=== PATIENT | female | born 2000 | race Caucasian/White ===

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

== ENCOUNTER 2021-10-28 23:46 | Emergency (ER) | payer OTHER ==
[~2021-10-28] VITALS: Ht 149.8 cm; Wt 42.2 kg
[2021-10-29 00:08] LABS: BASO # 0.1 10*3/uL (0.0-0.1); BASO % 1.3 % (0.0-1.0); EOS # 0.1 10*3/uL (0.0-0.4); EOS % 0.7 % (1.0-4.0); HEMATOCRIT 35.1 % (37.0-47.0); LYMPH # 3.1 10*3/uL (1.3-4.4); LYMPH % 35.6 % (27.0-41.0); MEAN CELL VOLUME 83.4 fl (81.0-99.0); MEAN CORPUSCULAR HGB CONC 34.8 g/dl (33.0-37.0); MEAN PLATELET VOLUME 9.1 fl (9.6-12.3); MONO # 0.7 10*3/uL (0.1-1.0); MONO % 8.1 % (3.0-9.0); NEUT # 4.7 10*3/uL (2.3-7.9); PLATELET COUNT AUTOMATED 394 10*3/uL (130-400); RED BLOOD COUNT 4.21 10*6/uL (4.10-5.10); RED CELL DISTRI WIDTH 12.7 % (0-14.5); WHITE BLOOD COUNT 8.7 10*3/uL (4.8-10.8)
[2021-10-29 00:18] LABS: ACT PARTIAL THROMBO TIME 23.5 SECONDS (20.0-32.1); INTERNATIONAL NORM RATIO 1.1 (2.0-3.5)
[2021-10-29 00:23] LABS: ALKALINE PHOSPHATASE 74 U/L (45-117); BUN 10 mg/dl (7-24); CHLORIDE 108 mmol/L (98-107); POTASSIUM 3.8 mmol/L (3.5-5.1); SGOT/AST 11 IU/L (3-35); SGPT/ALT 20 U/L (12-78); SODIUM 140 mmol/L (136-145); TOTAL PROTEIN 7.6 gm/dL (6.4-8.2)
[2021-10-29] MEDS ORDERED: SERTRALINE HYDR25 MG PO (00:57)
[2021-10-29] MEDS ORDERED: NORGESTIMATE-E1 EACH PO (00:58)
[2021-10-29] MEDS ORDERED: LAMOTRIGINE25 M1 PO (00:58)
== END 2021-10-29 03:41 | disposition home or self-care (01) ==
LOC: ED 23:46
PROVIDERS: Emergency Medicine
DX: F41.0 Panic disorder [episodic paroxysmal anxiety] (principal); F17.200 Nicotine dependence, unspecified, uncomplicated; Z79.899 Other long term (current) drug therapy

== ENCOUNTER 2021-11-01 16:36 | Emergency (ER) | payer OTHER ==
[~2021-11-01] VITALS: Wt 42.2 kg
[~2021-11-01 16:36] MED LIST changes: +LAMOTRIGINE25 M1 PO; +NORGESTIMATE-E1 EACH PO; +SERTRALINE HYDR25 MG PO
[2021-11-01 18:02] LABS: BASO # 0.1 10*3/uL (0.0-0.1); BASO % 1.6 % (0.0-1.0); EOS # 0.1 10*3/uL (0.0-0.4); EOS % 1.3 % (1.0-4.0); HEMATOCRIT 36.1 % (37.0-47.0); LYMPH # 3.3 10*3/uL (1.3-4.4); LYMPH % 51.6 % (27.0-41.0); MEAN CELL VOLUME 86.6 fl (81.0-99.0); MEAN CORPUSCULAR HGB 29.3 pg (27.0-31.0); MEAN CORPUSCULAR HGB CONC 33.8 g/dl (33.0-37.0); MEAN PLATELET VOLUME 9.2 fl (9.6-12.3); MONO # 0.5 10*3/uL (0.1-1.0); MONO % 7.2 % (3.0-9.0); NEUT # 2.4 10*3/uL (2.3-7.9); NEUT % 38.1 % (47.0-73.0); PLATELET COUNT AUTOMATED 359 10*3/uL (130-400); RED BLOOD COUNT 4.17 10*6/uL (4.10-5.10); RED CELL DISTRI WIDTH 12.8 % (0-14.5); WHITE BLOOD COUNT 6.4 10*3/uL (4.8-10.8)
[2021-11-01 18:17] LABS: ALKALINE PHOSPHATASE 78 U/L (45-117); BUN 10 mg/dl (7-24); CHLORIDE 107 mmol/L (98-107); CREATININE 0.68 mg/dL (0.55-1.02); POTASSIUM 4.5 mmol/L (3.5-5.1); SGOT/AST 14 IU/L (3-35); SGPT/ALT 19 U/L (12-78); SODIUM 140 mmol/L (136-145)
[2021-11-01 18:20] LABS: B-hCG (QUALITATIVE) NEGATIVE (NEGATIVE)
== END 2021-11-01 19:50 | disposition home or self-care (01) ==
LOC: ED 16:36
PROVIDERS: Physician Assistant
DX: R07.89 Other chest pain (principal); Z79.899 Other long term (current) drug therapy

== ENCOUNTER 2022-04-04 14:16 | Emergency (ER) | payer OTHER ==
[~2022-04-04] VITALS: Ht 149.8 cm; Wt 46.3 kg
[2022-04-04 15:01] LABS: BASO # 0.1 10*3/uL (0.0-0.1); BASO % 1.4 % (0.0-1.0); EOS % 0.4 % (1.0-4.0); HEMATOCRIT 37.2 % (37.0-47.0); LYMPH # 2.3 10*3/uL (1.3-4.4); LYMPH % 41.6 % (27.0-41.0); MEAN CELL VOLUME 85.9 fl (81.0-99.0); MEAN CORPUSCULAR HGB 29.6 pg (27.0-31.0); MEAN CORPUSCULAR HGB CONC 34.4 g/dl (33.0-37.0); MEAN PLATELET VOLUME 9.1 fl (9.6-12.3); MONO # 0.3 10*3/uL (0.1-1.0); MONO % 4.8 % (3.0-9.0); NEUT # 2.9 10*3/uL (2.3-7.9); NEUT % 51.4 % (47.0-73.0); PLATELET COUNT AUTOMATED 346 10*3/uL (130-400); RED BLOOD COUNT 4.33 10*6/uL (4.10-5.10); RED CELL DISTRI WIDTH 12.6 % (0-14.5); WHITE BLOOD COUNT 5.6 10*3/uL (4.8-10.8)
[2022-04-04 15:20] LABS: ALKALINE PHOSPHATASE 67 U/L (46-116); BUN 11 mg/dl (9-23); CHLORIDE 103 mmol/L (98-107); POTASSIUM 3.7 mmol/L (3.4-5.1); SGPT/ALT 17 U/L (10-49); TOTAL PROTEIN 7.5 gm/dL (6.0-8.0)
== END 2022-04-04 17:20 | disposition home or self-care (01) ==
LOC: ED 14:16
PROVIDERS: Physician Assistant
DX: R11.2 Nausea with vomiting, unspecified (principal); Z88.8 Allergy status to other drugs, medicaments and biological substances

== ENCOUNTER 2022-04-24 07:24 | Emergency (ER) | payer OTHER ==
[~2022-04-24] VITALS: Wt 43.5 kg
[2022-04-24] MEDS ORDERED: ONDANSETRON4 MG SL (09:20)
== END 2022-04-24 09:35 | disposition home or self-care (01) ==
LOC: ED 07:24
DX: R11.2 Nausea with vomiting, unspecified (principal); Z91.013 Allergy to seafood; Z87.891 Personal history of nicotine dependence

== ENCOUNTER 2022-06-02 22:23 | Emergency (ER) | payer OTHER ==
[~2022-06-02] VITALS: Wt 42.2 kg
[~2022-06-02 22:23] MED LIST changes: +ONDANSETRON4 MG SL
[2022-06-02 23:25] LABS: BASO # 0.1 10*3/uL (0.0-0.1); BASO % 1.6 % (0.0-1.0); EOS # 0.1 10*3/uL (0.0-0.4); EOS % 1.2 % (1.0-4.0); HEMATOCRIT 35.8 % (37.0-47.0); LYMPH # 3.2 10*3/uL (1.3-4.4); LYMPH % 38.1 % (27.0-41.0); MEAN CORPUSCULAR HGB 28.7 pg (27.0-31.0); MEAN CORPUSCULAR HGB CONC 32.7 g/dl (33.0-37.0); MEAN PLATELET VOLUME 9.4 fl (9.6-12.3); MONO # 0.6 10*3/uL (0.1-1.0); MONO % 7.2 % (3.0-9.0); NEUT # 4.3 10*3/uL (2.3-7.9); NEUT % 51.7 % (47.0-73.0); PLATELET COUNT AUTOMATED 353 10*3/uL (130-400); RED BLOOD COUNT 4.07 10*6/uL (4.10-5.10); RED CELL DISTRI WIDTH 12.9 % (0-14.5); WHITE BLOOD COUNT 8.4 10*3/uL (4.8-10.8)
[2022-06-02 23:44] LABS: BILIRUBIN Negative (Negative); BLOOD Negative (Negative); CLARITY Cloudy (Clear); COLOR Yellow (Yellow); GLUCOSE Negative (Negative); KETONE Negative (Negative); LEUKO ESTERASE Negative (Negative); NITRITE Negative (Negative); UROBILINOGEN 0.2 E.U./dl (0.0-1.0)
[2022-06-02 23:44] LABS: ALKALINE PHOSPHATASE 64 U/L (46-116); BUN 9 mg/dl (9-23); CHLORIDE 106 mmol/L (98-107); LIPASE 34 U/L (12-53); SGPT/ALT 12 U/L (10-49); TOTAL PROTEIN 7.4 gm/dL (6.0-8.0)
[2022-06-03 00:19] LABS: BACTERIA 1+; RBC 0-2 rbc/hpf (0-2); WBC 0-2 wbc/hpf (0-5)
[2022-06-03] MEDS ORDERED: Ondansetron4 MG PO (01:14)
== END 2022-06-03 01:16 | disposition home or self-care (01) ==
LOC: ED 22:23
PROVIDERS: Physician Assistant
DX: B34.9 Viral infection, unspecified (principal); Z79.899 Other long term (current) drug therapy

== ENCOUNTER 2022-07-25 15:25 | Emergency (ER) | payer OTHER ==
[~2022-07-25 15:25] MED LIST changes: +Ondansetron4 MG PO
[2022-07-25 15:59] LABS: BASO # 0.1 10*3/uL (0.0-0.1); EOS # 0.1 10*3/uL (0.0-0.4); EOS % 0.6 % (1.0-4.0); HEMATOCRIT 35.6 % (37.0-47.0); LYMPH # 2.4 10*3/uL (1.3-4.4); LYMPH % 30.8 % (27.0-41.0); MEAN CELL VOLUME 88.1 fl (81.0-99.0); MEAN CORPUSCULAR HGB 29.5 pg (27.0-31.0); MEAN CORPUSCULAR HGB CONC 33.4 g/dl (33.0-37.0); MEAN PLATELET VOLUME 9.7 fl (9.6-12.3); MONO # 0.4 10*3/uL (0.1-1.0); MONO % 5.3 % (3.0-9.0); NEUT # 4.8 10*3/uL (2.3-7.9); NEUT % 62.2 % (47.0-73.0); PLATELET COUNT AUTOMATED 344 10*3/uL (130-400); RED BLOOD COUNT 4.04 10*6/uL (4.10-5.10); RED CELL DISTRI WIDTH 12.4 % (0-14.5); WHITE BLOOD COUNT 7.8 10*3/uL (4.8-10.8)
[2022-07-25 16:17] LABS: ALKALINE PHOSPHATASE 61 U/L (46-116); BUN 12 mg/dl (9-23); CHLORIDE 107 mmol/L (98-107); POTASSIUM 3.7 mmol/L (3.4-5.1); SGPT/ALT 29 U/L (10-49); TOTAL PROTEIN 7.1 gm/dL (6.0-8.0)
== END 2022-07-25 17:40 | disposition home or self-care (01) ==
LOC: ED 15:25
PROVIDERS: Student in an Organized Health Care Education/Training Program
DX: K21.9 Gastro-esophageal reflux disease without esophagitis (principal); R07.89 Other chest pain; G43.909 Migraine, unspecified, not intractable, without status migrainosus; Z91.013 Allergy to seafood

== ENCOUNTER 2022-09-17 23:05 | Emergency (ER) | payer OTHER ==
[~2022-09-17] VITALS: Ht 149.8 cm; Wt 45.8 kg
== END 2022-09-18 00:46 | disposition home or self-care (01) ==
LOC: ED 23:05
DX: F41.9 Anxiety disorder, unspecified (principal); R25.1 Tremor, unspecified; M79.602 Pain in left arm; R07.89 Other chest pain

== ENCOUNTER 2022-10-09 21:16 | Emergency (ER) | payer OTHER ==
[~2022-10-09] VITALS: Ht 149.8 cm; Wt 45.8 kg
== END 2022-10-09 22:53 | disposition home or self-care (01) ==
LOC: ED 21:16
DX: F41.9 Anxiety disorder, unspecified (principal); G43.909 Migraine, unspecified, not intractable, without status migrainosus; Z91.013 Allergy to seafood

== ENCOUNTER 2023-08-26 19:01 | Emergency (ER) | payer OTHER ==
[~2023-08-26] VITALS: Wt 44.5 kg
[2023-08-26 19:33] LABS: BILIRUBIN Negative (Negative); BLOOD Negative (Negative); CLARITY Cloudy (Clear); COLOR Yellow (Yellow); GLUCOSE Negative (Negative); KETONE Negative (Negative); LEUKO ESTERASE 1+ (Negative); NITRITE Negative (Negative); SPECIFIC GRAVITY 1.025 (1.001-1.030)
[2023-08-26 20:10] LABS: PH >= 9.0 (4.5-8.0)
[2023-08-26 20:14] LABS: BACTERIA 1+
[2023-08-26] MEDS ORDERED: Nitrofurantoin, Macrocrystal 100 MG 2 CAP ED PACK PO SCH (20:20)
[2023-08-26] MEDS ORDERED: MACROBID100 M1 PO (20:21)
== END 2023-08-26 20:30 | disposition home or self-care (01) ==
LOC: ED 19:01
PROVIDERS: Nurse Practitioner Family
DX: N39.0 Urinary tract infection, site not specified (principal); G43.909 Migraine, unspecified, not intractable, without status migrainosus; Z91.013 Allergy to seafood

== ENCOUNTER 2023-10-18 11:56 | Emergency (ER) | payer OTHER ==
[~2023-10-18] VITALS: Ht 149.8 cm; Wt 43.1 kg
[~2023-10-18 11:56] MED LIST changes: +MACROBID100 M1 PO
[2023-10-18] MEDS ORDERED: Ondansetron Hydrochloride 4 MG/2 ML VIAL IV ONE (12:35)
[2023-10-18] MEDS ORDERED: SODIUM CHLORIDE 0.9% 1,000 ML IV ONE (12:35)
[2023-10-18] MEDS ORDERED: ACETAMINOPHEN 325 MG TAB PO ONE (12:35)
[2023-10-18 12:55] LABS: BASO # 0.1 10*3/uL (0.0-0.1); BASO % 0.8 % (0.0-1.0); EOS % 0.4 % (1.0-4.0); HEMATOCRIT 38.1 % (37.0-47.0); LYMPH # 1.5 10*3/uL (1.3-4.4); LYMPH % 20.2 % (27.0-41.0); MEAN CELL VOLUME 89.9 fl (81.0-99.0); MEAN CORPUSCULAR HGB 29.7 pg (27.0-31.0); MEAN CORPUSCULAR HGB CONC 33.1 g/dl (33.0-37.0); MEAN PLATELET VOLUME 9.6 fl (9.6-12.3); MONO # 0.7 10*3/uL (0.1-1.0); MONO % 8.8 % (3.0-9.0); NEUT # 5.2 10*3/uL (2.3-7.9); NEUT % 69.4 % (47.0-73.0); PLATELET COUNT AUTOMATED 317 10*3/uL (130-400); RED BLOOD COUNT 4.24 10*6/uL (4.10-5.10); RED CELL DISTRI WIDTH 12.3 % (0-14.5); WHITE BLOOD COUNT 7.5 10*3/uL (4.8-10.8)
[2023-10-18 13:14] LABS: BUN 5 mg/dl (9-23); CHLORIDE 106 mmol/L (98-107); POTASSIUM 3.5 mmol/L (3.4-5.1)
[2023-10-18] MEDS ORDERED: Ondansetron4 MG PO (14:21)
[2023-10-18] MEDS ORDERED: DECADRON4 MG PO (14:21)
== END 2023-10-18 14:31 | disposition home or self-care (01) ==
LOC: ED 11:56
PROVIDERS: Nurse Practitioner
DX: U07.1 COVID-19 (principal); R11.2 Nausea with vomiting, unspecified; R50.9 Fever, unspecified; Z91.013 Allergy to seafood

== ENCOUNTER 2023-11-20 23:19 | Emergency (ER) | payer OTHER ==
[~2023-11-20] VITALS: Ht 149.8 cm; Wt 43.1 kg
[~2023-11-20 23:19] MED LIST changes: +DECADRON4 MG PO
[2023-11-20] MEDS ORDERED: Dicyclomine Hydrochloride 20 MG/10 ML OSYR PO STA (23:36)
[2023-11-20] MEDS ORDERED: Lidocaine Hydrochloride 15 ML UDC PO STA (23:36)
[2023-11-20] MEDS ORDERED: MG-AL HYDROXIDE/SIMETICONE 30 ML UDC PO STA (23:36)
[2023-11-20] MEDS ORDERED: Ondansetron Hydrochloride 4 MG TAB SL ONE (23:40)
[2023-11-20 23:50] LABS: BASO # 0.1 10*3/uL (0.0-0.1); BASO % 1.3 % (0.0-1.0); EOS # 0.1 10*3/uL (0.0-0.4); EOS % 0.9 % (1.0-4.0); HEMATOCRIT 37.5 % (37.0-47.0); LYMPH # 3.5 10*3/uL (1.3-4.4); LYMPH % 37.5 % (27.0-41.0); MEAN CELL VOLUME 88.4 fl (81.0-99.0); MEAN CORPUSCULAR HGB 29.5 pg (27.0-31.0); MEAN CORPUSCULAR HGB CONC 33.3 g/dl (33.0-37.0); MEAN PLATELET VOLUME 9.2 fl (9.6-12.3); MONO # 0.6 10*3/uL (0.1-1.0); MONO % 6.9 % (3.0-9.0); NEUT # 4.9 10*3/uL (2.3-7.9); NEUT % 53.1 % (47.0-73.0); PLATELET COUNT AUTOMATED 385 10*3/uL (130-400); RED BLOOD COUNT 4.24 10*6/uL (4.10-5.10); RED CELL DISTRI WIDTH 12.3 % (0-14.5); WHITE BLOOD COUNT 9.3 10*3/uL (4.8-10.8)
[2023-11-21 00:10] LABS: BETA-HCG, QUANT < 3.0 mIU/mL (3-10); BUN 10 mg/dl (9-23); CHLORIDE 106 mmol/L (98-107); POTASSIUM 3.3 mmol/L (3.4-5.1)
[2023-11-21] MEDS ORDERED: HEARTBURN RELIE10 MG PO (00:22)
[2023-11-21] MEDS ORDERED: POTASSIUM CHLORIDE 20 MEQ TAB PO ONE (00:25)
== END 2023-11-21 00:35 | disposition home or self-care (01) ==
LOC: ED 23:19
PROVIDERS: Internal Medicine
DX: K21.9 Gastro-esophageal reflux disease without esophagitis (principal); G43.909 Migraine, unspecified, not intractable, without status migrainosus; Z91.013 Allergy to seafood

== ENCOUNTER 2023-12-23 16:45 | Emergency (ER) | payer OTHER ==
[~2023-12-23] VITALS: Ht 149.8 cm; Wt 45.4 kg
[~2023-12-23 16:45] MED LIST changes: +HEARTBURN RELIE10 MG PO
[2023-12-23] MEDS ORDERED: CETIRIZINE HYDR10 MG PO (16:58)
[2023-12-23] MEDS ORDERED: HEARTBURN RELIE20 MG PO (17:06)
[2023-12-23] MEDS ORDERED: Dicyclomine Hydrochloride 20 MG/10 ML OSYR PO STA (17:07)
[2023-12-23] MEDS ORDERED: MG-AL HYDROXIDE/SIMETICONE 30 ML UDC PO STA (17:07)
[2023-12-23] MEDS ORDERED: Lidocaine Hydrochloride 15 ML UDC PO STA (17:07)
== END 2023-12-23 17:19 | disposition home or self-care (01) ==
LOC: ED 16:45
DX: K21.9 Gastro-esophageal reflux disease without esophagitis (principal); F41.9 Anxiety disorder, unspecified; Z91.013 Allergy to seafood; G43.909 Migraine, unspecified, not intractable, without status migrainosus

== ENCOUNTER 2024-01-22 23:42 | Emergency (ER) | payer OTHER ==
[~2024-01-22] VITALS: Ht 149.8 cm; Wt 44.0 kg
[~2024-01-22 23:42] MED LIST changes: +CETIRIZINE HYDR10 MG PO; +HEARTBURN RELIE20 MG PO
[2024-01-22] MEDS ORDERED: Cyclobenzaprine Hydrochlorid 10 MG TAB PO ONE (23:55)
[2024-01-22] MEDS ORDERED: Ketorolac Tromethamine 60 MG/2 ML VIAL IM ONE (23:55)
[2024-01-22] MEDS ORDERED: Dexamethasone Sodium Phospha 20 MG/5 ML VIAL IM ONE (23:55)
[2024-01-23] MEDS ORDERED: Lidocaine Hydrochloride 15 ML UDC PO STA (00:36)
[2024-01-23] MEDS ORDERED: Dicyclomine Hydrochloride 20 MG/10 ML OSYR PO STA (00:36)
[2024-01-23] MEDS ORDERED: MG-AL HYDROXIDE/SIMETICONE 30 ML UDC PO STA (00:36)
[2024-01-23] MEDS ORDERED: MEDROL DOSEPAK4 MG PO (01:31)
[2024-01-23] MEDS ORDERED: MELOXICAM15 MG PO (01:31)
[2024-01-23] MEDS ORDERED: CYCLOBENZAPRINE5 M3 PO (01:31)
== END 2024-01-23 01:44 | disposition home or self-care (01) ==
LOC: ED 23:42
DX: M62.830 Muscle spasm of back (principal); G43.909 Migraine, unspecified, not intractable, without status migrainosus; K21.9 Gastro-esophageal reflux disease without esophagitis; Z91.013 Allergy to seafood

== ENCOUNTER 2024-02-17 19:00 | Emergency (ER) | payer OTHER ==
[~2024-02-17] VITALS: Ht 149.8 cm; Wt 44.0 kg
[~2024-02-17 19:00] MED LIST changes: +CYCLOBENZAPRINE5 M3 PO; +MEDROL DOSEPAK4 MG PO; +MELOXICAM15 MG PO
[2024-02-17] MEDS ORDERED: AZITHROMYCIN 250 MG TAB PO ONE (19:25)
[2024-02-17 19:29] LABS: BILIRUBIN Negative (Negative); BLOOD Negative (Negative); CLARITY Clear (Clear); COLOR Yellow (Yellow); GLUCOSE Negative (Negative); KETONE Negative (Negative); LEUKO ESTERASE 1+ (Negative); NITRITE Negative (Negative); PH 6.5 (4.5-8.0); UROBILINOGEN 0.2 E.U./dl (0.0-1.0)
[2024-02-17 19:38] LABS: BACTERIA 1+; EPITHELIAL CELLS 16-20; MUCOUS 1+; RBC 0-2 rbc/hpf (0-2)
[2024-02-17] MEDS ORDERED: METRONIDAZOLE500 M1 PO (20:24)
== END 2024-02-17 20:08 | disposition home or self-care (01) ==
LOC: ED 19:00
PROVIDERS: Internal Medicine
DX: Z11.3 Encounter for screening for infections with a predominantly sexual mode of transmission (principal); G43.909 Migraine, unspecified, not intractable, without status migrainosus; K21.9 Gastro-esophageal reflux disease without esophagitis; Z79.899 Other long term (current) drug therapy; Z91.013 Allergy to seafood

== ENCOUNTER 2024-02-23 11:24 | Emergency (ER) | payer OTHER ==
[~2024-02-23] VITALS: Ht 149.8 cm; Wt 44.0 kg
[~2024-02-23 11:24] MED LIST changes: +METRONIDAZOLE500 M1 PO
[2024-02-23] MEDS ORDERED: Ondansetron Hydrochloride 4 MG TAB SL ONE (11:40)
[2024-02-23 11:48] LABS: BASO # 0.1 10*3/uL (0.0-0.1); BASO % 2.1 % (0.0-1.0); EOS # 0.1 10*3/uL (0.0-0.4); EOS % 1.5 % (1.0-4.0); HEMATOCRIT 36.9 % (37.0-47.0); MEAN CELL VOLUME 89.3 fl (81.0-99.0); MEAN CORPUSCULAR HGB 29.1 pg (27.0-31.0); MEAN CORPUSCULAR HGB CONC 32.5 g/dl (33.0-37.0); MEAN PLATELET VOLUME 8.8 fl (9.6-12.3); MONO # 0.4 10*3/uL (0.1-1.0); MONO % 8.5 % (3.0-9.0); NEUT # 2.2 10*3/uL (2.3-7.9); NEUT % 42.7 % (47.0-73.0); PLATELET COUNT AUTOMATED 374 10*3/uL (130-400); RED BLOOD COUNT 4.13 10*6/uL (4.10-5.10); RED CELL DISTRI WIDTH 12.5 % (0-14.5); WHITE BLOOD COUNT 5.2 10*3/uL (4.8-10.8)
[2024-02-23 11:52] LABS: BILIRUBIN Negative (Negative); BLOOD Negative (Negative); CLARITY Clear (Clear); COLOR Yellow (Yellow); GLUCOSE Negative (Negative); KETONE Negative (Negative); LEUKO ESTERASE Trace (Negative); NITRITE Negative (Negative); UROBILINOGEN 0.2 E.U./dl (0.0-1.0)
[2024-02-23 12:02] LABS: BACTERIA 1+; EPITHELIAL CELLS 31-40; MUCOUS 2+
[2024-02-23 12:13] LABS: BUN 12 mg/dl (9-23); CHLORIDE 107 mmol/L (98-107); POTASSIUM 4.3 mmol/L (3.4-5.1)
[2024-02-23] MEDS ORDERED: Ondansetron4 MG PO (12:27)
[2024-02-23] MEDS ORDERED: Ondansetron 4 MG 2 TAB ED PACK PO SCH (12:30)
== END 2024-02-23 12:28 | disposition home or self-care (01) ==
LOC: ED 11:24
PROVIDERS: Nurse Practitioner Family
DX: R11.2 Nausea with vomiting, unspecified (principal); G43.909 Migraine, unspecified, not intractable, without status migrainosus; K21.9 Gastro-esophageal reflux disease without esophagitis; Z91.013 Allergy to seafood; Z87.891 Personal history of nicotine dependence; Z79.899 Other long term (current) drug therapy

== ENCOUNTER 2024-03-20 21:20 | Emergency (ER) | payer OTHER ==
[~2024-03-20] VITALS: Ht 149.8 cm; Wt 45.4 kg
[2024-03-20] MEDS ORDERED: Dicyclomine Hydrochloride 20 MG/10 ML OSYR PO STA (21:34)
[2024-03-20] MEDS ORDERED: Lidocaine Hydrochloride 15 ML UDC PO STA (21:34)
[2024-03-20] MEDS ORDERED: MG-AL HYDROXIDE/SIMETICONE 30 ML UDC PO STA (21:34)
[2024-03-20] MEDS ORDERED: PEPCID20 MG PO (21:37)
== END 2024-03-20 21:57 | disposition home or self-care (01) ==
LOC: ED 21:20
DX: K21.9 Gastro-esophageal reflux disease without esophagitis (principal); G43.909 Migraine, unspecified, not intractable, without status migrainosus; Z91.013 Allergy to seafood; Z79.899 Other long term (current) drug therapy

== ENCOUNTER 2024-05-23 15:06 | Emergency (ER) | payer OTHER ==
[~2024-05-23] VITALS: Ht 149.8 cm; Wt 44.5 kg
[~2024-05-23 15:06] MED LIST changes: +PEPCID20 MG PO
[2024-05-23] MEDS ORDERED: PREDNISONE10 MG PO (15:28)
[2024-05-23] MEDS ORDERED: methylPREDNISolone sod succ 125 MG VIAL IM ONE (15:30)
== END 2024-05-23 15:36 | disposition home or self-care (01) ==
LOC: ED 15:06
DX: T78.40XA Allergy, unspecified, initial encounter (principal); G43.909 Migraine, unspecified, not intractable, without status migrainosus; K21.9 Gastro-esophageal reflux disease without esophagitis; R21 Rash and other nonspecific skin eruption; Z91.013 Allergy to seafood; X58.XXXA Exposure to other specified factors, initial encounter

== ENCOUNTER 2024-05-26 06:49 | Emergency (ER) | payer OTHER ==
[~2024-05-26] VITALS: Ht 149.9 cm; Wt 44.5 kg
[~2024-05-26 06:49] MED LIST changes: +PREDNISONE10 MG PO
[2024-05-26] MEDS ORDERED: diphenhydrAMINE hydrochloride 50 MG/ML VIAL IM ONE (06:55)
[2024-05-26] MEDS ORDERED: Dexamethasone Sodium Phospha 20 MG/5 ML VIAL IM ONE (06:55)
[2024-05-26] MEDS ORDERED: FAMOTIDINE 50 ML IV ONE (06:55)
[2024-05-26] MEDS ORDERED: PREDNISONE50 MG PO (06:59)
== END 2024-05-26 07:29 | disposition home or self-care (01) ==
LOC: ED 06:49
DX: L23.9 Allergic contact dermatitis, unspecified cause (principal); G43.909 Migraine, unspecified, not intractable, without status migrainosus; K21.9 Gastro-esophageal reflux disease without esophagitis

== ENCOUNTER 2024-06-05 20:44 | Emergency (ER) | payer OTHER ==
[~2024-06-05] VITALS: Ht 152.4 cm; Wt 44.5 kg
[~2024-06-05 20:44] MED LIST changes: +PREDNISONE50 MG PO
[2024-06-05] MEDS ORDERED: ADENOSINE 6 MG/2 ML VIAL IV ONE (23:13)
[2024-06-07 08:07] LABS: HEP B SURFACE Ab, Qual Reactive (.)
== END 2024-06-05 21:39 | disposition home or self-care (01) ==
LOC: ED 20:44
PROVIDERS: Nurse Practitioner Family
DX: S61.239A Puncture wound without foreign body of unspecified finger without damage to nail, initial encounter (principal); G43.909 Migraine, unspecified, not intractable, without status migrainosus; K21.9 Gastro-esophageal reflux disease without esophagitis; Z79.899 Other long term (current) drug therapy; Z91.013 Allergy to seafood; W46.0XXA Contact with hypodermic needle, initial encounter; Y93.89 Activity, other specified; Y92.89 Other specified places as the place of occurrence of the external cause; Y99.0 Civilian activity done for income or pay

== ENCOUNTER → 2024-06-08 | Outpatient (CLI) | payer OTHER ==
[2024-06-08 11:41] LABS: BASO # 0.1 10*3/uL (0.0-0.1); BASO % 0.7 % (0.0-1.0); EOS # 0.1 10*3/uL (0.0-0.4); MEAN CELL VOLUME 90.9 fl (81.0-99.0); MEAN CORPUSCULAR HGB 30.4 pg (27.0-31.0); MEAN CORPUSCULAR HGB CONC 33.4 g/dl (33.0-37.0); MEAN PLATELET VOLUME 9.4 fl (9.6-12.3); MONO # 0.5 10*3/uL (0.1-1.0); MONO % 5.1 % (3.0-9.0); NEUT # 6.5 10*3/uL (2.3-7.9); NEUT % 67.4 % (47.0-73.0); PLATELET COUNT AUTOMATED 329 10*3/uL (130-400); RED BLOOD COUNT 3.85 10*6/uL (4.10-5.10); RED CELL DISTRI WIDTH 12.7 % (0-14.5); WHITE BLOOD COUNT 9.7 10*3/uL (4.8-10.8)
[2024-06-08 12:19] LABS: ALKALINE PHOSPHATASE 70 U/L (46-116); BUN 10 mg/dl (9-23); CHLORIDE 105 mmol/L (98-107); POTASSIUM 3.2 mmol/L (3.4-5.1); SGPT/ALT 47 U/L (5-49); TOTAL PROTEIN 7.4 gm/dL (6.0-8.0)
[2024-06-08 12:22] LABS: VITAMIN D, 25-HYDROXY 26.9 ng/mL (30-100)
== END | disposition home or self-care (01) ==
LOC: LAB 10:53
PROVIDERS: ATTEND Pediatrics
DX: T78.40XA Allergy, unspecified, initial encounter (principal); D64.9 Anemia, unspecified; E55.9 Vitamin D deficiency, unspecified; E53.9 Vitamin B deficiency, unspecified; X58.XXXA Exposure to other specified factors, initial encounter; Y93.89 Activity, other specified; Y92.89 Other specified places as the place of occurrence of the external cause; Y99.8 Other external cause status

== ENCOUNTER 2024-09-17 15:18 | Emergency (ER) | payer SELFPAY ==
[~2024-09-17] VITALS: Ht 149.8 cm; Wt 44.5 kg
[2024-09-17] MEDS ORDERED: SODIUM CHLORIDE 0.9% 1,000 ML IV ONE (16:15)
[2024-09-17] MEDS ORDERED: Ondansetron Hydrochloride 4 MG/2 ML VIAL IV ONE (16:15)
[2024-09-17 16:36] LABS: BASO # 0.1 10*3/uL (0.0-0.1); BASO % 1.2 % (0.0-1.0); EOS # 0.2 10*3/uL (0.0-0.4); EOS % 2.3 % (1.0-4.0); HEMATOCRIT 43.6 % (37.0-47.0); MEAN CORPUSCULAR HGB 29.3 pg (27.0-31.0); MEAN CORPUSCULAR HGB CONC 31.9 g/dl (33.0-37.0); MEAN PLATELET VOLUME 9.2 fl (9.6-12.3); MONO # 0.5 10*3/uL (0.1-1.0); MONO % 7.8 % (3.0-9.0); NEUT # 4.1 10*3/uL (2.3-7.9); NEUT % 60.8 % (47.0-73.0); PLATELET COUNT AUTOMATED 331 10*3/uL (130-400); RED BLOOD COUNT 4.74 10*6/uL (4.10-5.10); RED CELL DISTRI WIDTH 12.1 % (0-14.5); WHITE BLOOD COUNT 6.7 10*3/uL (4.8-10.8)
[2024-09-17 16:44] LABS: BILIRUBIN Negative (Negative); BLOOD 1+ (Negative); CLARITY Turbid (Clear); COLOR Yellow (Yellow); GLUCOSE Negative (Negative); KETONE 1+ (Negative); LEUKO ESTERASE 3+ (Negative); NITRITE Negative (Negative); PH 5.5 (4.5-8.0); SPECIFIC GRAVITY 1.025 (1.001-1.030); UROBILINOGEN 0.2 E.U./dl (0.0-1.0)
[2024-09-17 16:50] LABS: BACTERIA 2+; RBC 16-20 rbc/hpf (0-2); WBC 41-50 wbc/hpf (0-5)
[2024-09-17 16:56] LABS: BUN 8 mg/dl (9-23); CHLORIDE 103 mmol/L (98-107)
[2024-09-17] MEDS ORDERED: cefTRIAXone Sodium 1 GM/10 ML SYR IV ONE (17:05)
[2024-09-17] MEDS ORDERED: OMNICEF300 MG PO (18:35)
[2024-09-17] MEDS ORDERED: Ondansetron4 MG PO (18:35)
== END 2024-09-17 18:38 | disposition home or self-care (01) ==
LOC: ED 15:18
PROVIDERS: Nurse Practitioner Family
DX: E86.0 Dehydration (principal); N39.0 Urinary tract infection, site not specified; L55.9 Sunburn, unspecified; G43.909 Migraine, unspecified, not intractable, without status migrainosus; K21.9 Gastro-esophageal reflux disease without esophagitis; F41.9 Anxiety disorder, unspecified; Z91.030 Bee allergy status; Z79.899 Other long term (current) drug therapy